=== PATIENT | male | born 2000 | race African-American/Black ===

== ENCOUNTER 2023-10-12 11:22 | Day surgery (SDC) | payer BC ==
[2023-10-12] MEDS: Lactated Ringers 1,000 ML IV SCH (12:48)
[2023-10-12] MEDS ORDERED: propofoL 50 ML ONE (14:02)
[2023-10-12] MEDS ORDERED: dexmedeTOMIDine HCl 200 MCG/2 ML SDV ONE (14:42)
[2023-10-12] MEDS ORDERED: Lactated Ringers 1,000 ML IV SCH (15:15)
== END 2023-10-12 16:00 | disposition home or self-care (01) ==
LOC: MW.SDS 11:22
PROVIDERS: ATTEND Surgery
DX: K62.5 Hemorrhage of anus and rectum (principal); K64.8 Other hemorrhoids; Z79.899 Other long term (current) drug therapy
CPT/HCPCS: 45378; J2704; J7120; J3490